=== PATIENT | female | born 1985 | race African-American/Black ===

== ENCOUNTER 2017-04-30 02:56 | Inpatient (IN) | payer MEDICAID, OTHER ==
[~2017-04-30] VITALS: Ht 170.2 cm; Wt 176.1 kg
[~2017-04-30 02:56] MED LIST: CLON.1 PO; HALO10 PO; NYST1POW MC; OLAN5TAB2 PO
[2017-04-30] MEDS ORDERED: BENZ1TAB10 PO (03:17)
[2017-04-30] MEDS ORDERED: RISP.5 PO (03:17)
[2017-04-30 04:21] LABS: BASOPHILS % (AUTO) 0.4 % (0.0-2.0); EOSINOPHILS % (AUTO) 0.9 % (1.0-6.0); HEMATOCRIT 42.6 % (36-46); HEMOGLOBIN 14.2 g/dL (12.0-16.0); LYMPHOCYTES # (AUTO) 1.6 K/uL (1.0-4.8); LYMPHOCYTES % (AUTO) 12.8 % (22.0-44.0); MEAN CORPUSCULAR HEMOGLOBIN 28.8 pg (26.0-34.0); MEAN CORPUSCULAR HGB CONC 33.3 G/dL (31.0-37.0); MEAN CORPUSCULAR VOLUME 87 fL (80-100); MONOCYTES # (AUTO) 0.7 K/uL (0.1-1.0); MONOCYTES % (AUTO) 5.6 % (2.0-9.0); NEUTROPHILS # (AUTO) 10.3 K/uL (1.8-7.7); NEUTROPHILS % (AUTO) 80.3 % (40.0-70.0); PLATELET COUNT (AUTO) 324 K/uL (150-450); RED BLOOD CELL COUNT(AUTO) 4.92 MIL/uL (4.00-5.20); WHITE BLOOD COUNT (AUTO) 12.8 K/uL (4.5-11.0)
[2017-04-30 04:26] LABS: ANION GAP 9 mmol/L (8-16); CALCIUM, TOTAL 9.4 mg/dL (8.8-10.5); CARBON DIOXIDE 26 mmol/L (22-29); CHLORIDE 105 mmol/L (98-107); CREATININE 0.77 mg/dL (0.60-1.30); GLOMERULAR FILTR. RATE CALC > 60 mL/min (>60); POTASSIUM 3.6 mmol/L (3.5-5.1); SODIUM SERUM 140 mmol/L (136-145); UREA NITROGEN, BLOOD 10 mg/dL (7-18)
[2017-04-30 04:32] LABS: ALANINE AMINOTRANSFERASE 14 U/L (12-78); ASPARTATE AMINOTRANSFERASE 13 U/L (15-37); BILIRUBIN,TOTAL 0.5 mg/dL (0.1-1.0)
[2017-04-30 04:33] LABS: ALBUMIN 3.2 g/dL (3.4-5.0); TOTAL PROTEIN, SERUM 7.8 g/dL (6.4-8.2)
[2017-04-30] MEDS ORDERED: DiphenhydrAMINE HCL 50 MG/ML VIAL IM ONE (05:00)
[2017-04-30] MEDS ORDERED: ZIPRASIDONE MESYLATE 20 MG/VIAL IM ONE (05:00)
[2017-04-30] MEDS ORDERED: LORazepam 2 MG/ML VIAL IM ONE (05:00)
[2017-04-30] MEDS ORDERED: KETOROLAC TROMETHAMINE 60 MG/2 ML VIAL IM ONE (07:30)
[2017-04-30] MEDS ORDERED: ACETAMINOPHEN 325 MG TABLET PO ONE (08:45)
[2017-04-30] MEDS ORDERED: ZOLPIDEM TARTRATE 10 MG TABLET PO PRN (09:00)
[2017-04-30] MEDS ORDERED: HALOPERIDOL 5 MG TABLET PO PRN (09:00)
[2017-04-30 11:54] VITALS: BP 143/104
[2017-04-30] MEDS: CloNIDine HCL 0.1 MG TABLET PO SCH ×2 (12:13→16:49)
[2017-04-30 16:45] VITALS: BP 157/94
[2017-04-30] MEDS: RisperiDONE 1 MG TABLET PO SCH (20:58)
[2017-04-30] MEDS: BENZTROPINE MESYLATE 1 MG TABLET PO SCH (20:58)
[2017-05-01 07:06] VITALS: BP 141/94
[2017-05-01] MEDS: CloNIDine HCL 0.1 MG TABLET PO SCH ×2 (08:35→17:07)
[2017-05-01] MEDS: RisperiDONE 1 MG TABLET PO SCH ×2 (08:35→20:40)
[2017-05-01] MEDS: NICOTINE 14 MG/24 HOUR PATCH TD SCH (08:35)
[2017-05-01] MEDS: BENZTROPINE MESYLATE 1 MG TABLET PO SCH ×2 (08:35→20:40)
[2017-05-01 09:23] VITALS: BP 108/72
[2017-05-01 09:52] LABS: CHOL/HDL RATIO 2.9 (3.9-5.7); THYROID STIMULATING HORMONE 0.86 uIU/mL (0.36-3.74)
[2017-05-01 19:28] VITALS: BP 145/79
[2017-05-02 06:22] VITALS: BP 121/87
[2017-05-02] MEDS: CloNIDine HCL 0.1 MG TABLET PO SCH ×2 (08:37→16:33)
[2017-05-02] MEDS: RisperiDONE 1 MG TABLET PO SCH ×2 (08:37→20:18)
[2017-05-02] MEDS: NICOTINE 14 MG/24 HOUR PATCH TD SCH (08:37)
[2017-05-02] MEDS: LORazepam 2 MG TABLET PO PRN (08:37)
[2017-05-02] MEDS: BENZTROPINE MESYLATE 1 MG TABLET PO SCH ×2 (08:37→20:18)
[2017-05-02 09:49] VITALS: BP 125/74
[2017-05-02 16:22] VITALS: BP 123/70
[2017-05-03] VITALS (13 sets, daily range): BP systolic 126–142; BP diastolic 62–100
[2017-05-03] MEDS: LORazepam 2 MG TABLET PO PRN (01:27)
[2017-05-03] MEDS: ACETAMINOPHEN 325 MG TABLET PO PRN ×3 (04:59→13:28)
[2017-05-03] MEDS: CloNIDine HCL 0.1 MG TABLET PO SCH ×2 (09:13→16:08)
[2017-05-03] MEDS: BENZTROPINE MESYLATE 1 MG TABLET PO SCH ×2 (09:13→20:20)
[2017-05-03] MEDS: RisperiDONE 1 MG TABLET PO SCH ×2 (09:13→20:20)
[2017-05-03] MEDS: NICOTINE 14 MG/24 HOUR PATCH TD SCH (09:14)
[2017-05-04 06:52] VITALS: BP 100/63
[2017-05-04 08:39] VITALS: BP 147/92
[2017-05-04] MEDS: BENZTROPINE MESYLATE 1 MG TABLET PO SCH ×2 (10:14→20:06)
[2017-05-04] MEDS: RisperiDONE 1 MG TABLET PO SCH ×2 (10:14→20:06)
[2017-05-04] MEDS: CloNIDine HCL 0.1 MG TABLET PO SCH ×2 (10:15→16:04)
[2017-05-04] MEDS: NICOTINE 14 MG/24 HOUR PATCH TD SCH (10:16)
[2017-05-04 12:26] VITALS: BP 125/62
[2017-05-04 16:21] VITALS: BP 138/89
[2017-05-04] MEDS: ACETAMINOPHEN 325 MG TABLET PO PRN (21:28)
[2017-05-05 06:30] VITALS: BP 135/87
[2017-05-05] MEDS: IBUPROFEN 600 MG TABLET PO PRN ×2 (06:35→17:46)
[2017-05-05 08:47] VITALS: BP 133/71
[2017-05-05] MEDS: RisperiDONE 2 MG TABLET PO SCH ×2 (08:49→20:14)
[2017-05-05] MEDS: BENZTROPINE MESYLATE 1 MG TABLET PO SCH ×2 (08:49→20:14)
[2017-05-05] MEDS: NICOTINE 14 MG/24 HOUR PATCH TD SCH (08:49)
[2017-05-05] MEDS: CloNIDine HCL 0.1 MG TABLET PO SCH ×2 (08:49→16:19)
[2017-05-05 16:33] VITALS: BP 143/86
[2017-05-05] MEDS: ACETAMINOPHEN 325 MG TABLET PO PRN (22:02)
[2017-05-06 06:54] VITALS: BP 132/78
[2017-05-06] MEDS: BENZTROPINE MESYLATE 1 MG TABLET PO SCH ×2 (08:48→20:36)
[2017-05-06] MEDS: CloNIDine HCL 0.1 MG TABLET PO SCH ×2 (08:48→16:39)
[2017-05-06] MEDS: RisperiDONE 2 MG TABLET PO SCH ×2 (08:48→20:36)
[2017-05-06] MEDS: NICOTINE 14 MG/24 HOUR PATCH TD SCH (08:49)
[2017-05-06 09:09] VITALS: BP 131/92
[2017-05-06 16:30] VITALS: BP 143/73
[2017-05-07 07:16] VITALS: BP 140/72
[2017-05-07 08:20] VITALS: BP 151/96
[2017-05-07] MEDS: CloNIDine HCL 0.1 MG TABLET PO SCH ×2 (08:20→16:40)
[2017-05-07] MEDS: BENZTROPINE MESYLATE 1 MG TABLET PO SCH ×2 (08:20→21:34)
[2017-05-07] MEDS: RisperiDONE 2 MG TABLET PO SCH ×2 (08:20→21:34)
[2017-05-07] MEDS: NICOTINE 14 MG/24 HOUR PATCH TD SCH (08:20)
[2017-05-07 16:21] VITALS: BP 108/73
[2017-05-08 06:56] VITALS: BP 135/76
[2017-05-08] MEDS: BENZTROPINE MESYLATE 1 MG TABLET PO SCH ×2 (08:18→20:29)
[2017-05-08] MEDS: RisperiDONE 2 MG TABLET PO SCH (08:18)
[2017-05-08] MEDS: CloNIDine HCL 0.1 MG TABLET PO SCH ×2 (08:18→16:38)
[2017-05-08] MEDS: NICOTINE 14 MG/24 HOUR PATCH TD SCH (08:18)
[2017-05-08 08:42] VITALS: BP_SYST 78
[2017-05-08] MEDS ORDERED: GuaiFENesin/D-METHORPHAN [SUGAR-FREE] 200-20MG/10 ML SYRUP UDCUP PO PRN (10:30)
[2017-05-08 16:00] VITALS: BP 115/61
[2017-05-08] MEDS: RisperiDONE 3 MG TABLET PO SCH (20:29)
[2017-05-09 05:00] VITALS: BP 117/63
[2017-05-09 08:28] VITALS: BP 101/78
[2017-05-09] MEDS: RisperiDONE 3 MG TABLET PO SCH ×2 (09:44→20:17)
[2017-05-09] MEDS: BENZTROPINE MESYLATE 1 MG TABLET PO SCH ×2 (09:44→20:18)
[2017-05-09] MEDS: CloNIDine HCL 0.1 MG TABLET PO SCH ×2 (09:44→16:22)
[2017-05-09] MEDS: NICOTINE 14 MG/24 HOUR PATCH TD SCH (09:44)
[2017-05-09 16:52] VITALS: BP 111/67
[2017-05-10 07:18] VITALS: BP 124/65
[2017-05-10] MEDS: RisperiDONE 3 MG TABLET PO SCH ×2 (08:20→20:22)
[2017-05-10] MEDS: BENZTROPINE MESYLATE 1 MG TABLET PO SCH ×2 (08:20→20:22)
[2017-05-10] MEDS: NICOTINE 14 MG/24 HOUR PATCH TD SCH (08:20)
[2017-05-10] MEDS: CloNIDine HCL 0.1 MG TABLET PO SCH ×2 (08:20→17:22)
[2017-05-10 08:46] VITALS: BP 133/73
[2017-05-10 16:00] VITALS: BP 124/69
[2017-05-11 07:06] VITALS: BP 118/70
[2017-05-11 08:02] VITALS: BP 128/82
[2017-05-11] MEDS: NICOTINE 14 MG/24 HOUR PATCH TD SCH (08:07)
[2017-05-11] MEDS: CloNIDine HCL 0.1 MG TABLET PO SCH ×2 (08:07→16:19)
[2017-05-11] MEDS: RisperiDONE 3 MG TABLET PO SCH ×2 (08:07→20:24)
[2017-05-11] MEDS: BENZTROPINE MESYLATE 1 MG TABLET PO SCH ×2 (08:07→20:24)
[2017-05-11 16:06] VITALS: BP 107/70
[2017-05-12 06:10] VITALS: BP 120/68
[2017-05-12] MEDS: BENZTROPINE MESYLATE 1 MG TABLET PO SCH ×2 (08:12→20:08)
[2017-05-12] MEDS: NICOTINE 14 MG/24 HOUR PATCH TD SCH (08:12)
[2017-05-12] MEDS: RisperiDONE 3 MG TABLET PO SCH ×2 (08:12→20:08)
[2017-05-12] MEDS: CloNIDine HCL 0.1 MG TABLET PO SCH ×2 (08:12→16:31)
[2017-05-12 09:12] VITALS: BP 128/78
[2017-05-12 16:46] VITALS: BP 126/89
[2017-05-13 06:00] VITALS: BP 122/81
[2017-05-13] MEDS: IBUPROFEN 600 MG TABLET PO PRN (06:02)
[2017-05-13] MEDS: NICOTINE 14 MG/24 HOUR PATCH TD SCH (08:28)
[2017-05-13] MEDS: BENZTROPINE MESYLATE 1 MG TABLET PO SCH ×2 (08:28→20:30)
[2017-05-13] MEDS: RisperiDONE 3 MG TABLET PO SCH ×2 (08:28→20:30)
[2017-05-13] MEDS: CloNIDine HCL 0.1 MG TABLET PO SCH ×2 (08:28→16:25)
[2017-05-13 08:35] VITALS: BP 145/90
[2017-05-13 16:24] VITALS: BP 106/68
[2017-05-14] MEDS: CloNIDine HCL 0.1 MG TABLET PO SCH ×2 (08:28→16:30)
[2017-05-14] MEDS: RisperiDONE 3 MG TABLET PO SCH ×2 (08:28→20:49)
[2017-05-14] MEDS: BENZTROPINE MESYLATE 1 MG TABLET PO SCH ×2 (08:28→20:49)
[2017-05-14] MEDS: NICOTINE 14 MG/24 HOUR PATCH TD SCH (08:28)
[2017-05-14 08:34] VITALS: BP 144/90
[2017-05-14] MEDS: ACETAMINOPHEN 325 MG TABLET PO PRN (08:34)
[2017-05-14 08:47] VITALS: BP 144/90
[2017-05-14 16:16] VITALS: BP 138/75
[2017-05-15 06:03] VITALS: BP 127/73
[2017-05-15] MEDS: CloNIDine HCL 0.1 MG TABLET PO SCH ×2 (08:22→16:17)
[2017-05-15] MEDS: BENZTROPINE MESYLATE 1 MG TABLET PO SCH ×2 (08:22→20:51)
[2017-05-15] MEDS: RisperiDONE 3 MG TABLET PO SCH ×2 (08:22→20:51)
[2017-05-15] MEDS: NICOTINE 14 MG/24 HOUR PATCH TD SCH (08:24)
[2017-05-15 08:28] VITALS: BP 115/64
[2017-05-15 16:21] VITALS: BP 115/63
[2017-05-15] MEDS: ACETAMINOPHEN 325 MG TABLET PO PRN (18:02)
[2017-05-16 06:20] VITALS: BP 118/75
[2017-05-16 08:16] VITALS: BP 108/65
[2017-05-16] MEDS: BENZTROPINE MESYLATE 1 MG TABLET PO SCH ×2 (09:24→20:37)
[2017-05-16] MEDS: RisperiDONE 3 MG TABLET PO SCH ×2 (09:24→20:37)
[2017-05-16] MEDS: NICOTINE 14 MG/24 HOUR PATCH TD SCH (09:24)
[2017-05-16] MEDS: CloNIDine HCL 0.1 MG TABLET PO SCH ×2 (09:24→16:25)
[2017-05-16 09:48] VITALS: BP 118/70
[2017-05-16 16:00] VITALS: BP 123/68
[2017-05-16 16:52] VITALS: BP 125/70
[2017-05-16] MEDS: IBUPROFEN 600 MG TABLET PO PRN (16:52)
[2017-05-17 06:43] VITALS: BP 138/71
[2017-05-17] MEDS: BENZTROPINE MESYLATE 1 MG TABLET PO SCH (08:40)
[2017-05-17] MEDS: CloNIDine HCL 0.1 MG TABLET PO SCH (08:40)
[2017-05-17] MEDS: RisperiDONE 3 MG TABLET PO SCH (08:40)
[2017-05-17] MEDS: NICOTINE 14 MG/24 HOUR PATCH TD SCH (08:40)
[2017-05-17 09:15] VITALS: BP 123/85
[2017-05-17] MEDS ORDERED: CLON.1 PO (09:30)
== END 2017-05-17 17:41 | disposition home or self-care (01) | DRG 750 ==
LOC: EMS 02:58 → B3A 09:32 → B2S 05-15 13:56
DX: F20.0 Paranoid schizophrenia (principal); R56.9 Unspecified convulsions; Z88.0 Allergy status to penicillin; Z72.0 Tobacco use; E11.9 Type 2 diabetes mellitus without complications
CPT/HCPCS: 84436; 84439; 84443; 99285; G0480

== ENCOUNTER 2017-09-14 22:32 | Inpatient (IN) | payer MEDICAID, OTHER ==
[~2017-09-14] VITALS: Ht 170.2 cm; Wt 180.8 kg
[~2017-09-14 22:32] MED LIST changes: +BENZ1TAB10 PO; +CLON-570 PO; -CLON.1 PO; -HALO10 PO; -NYST1POW MC; -OLAN5TAB2 PO; +RISP.5 PO
[2017-09-14 22:54] LABS: BASOPHILS % (AUTO) 0.1 % (0.0-2.0); EOSINOPHILS % (AUTO) 2.3 % (1.0-6.0); HEMATOCRIT 42.5 % (36-46); HEMOGLOBIN 14.4 g/dL (12.0-16.0); LYMPHOCYTES # (AUTO) 2.3 K/uL (1.0-4.8); LYMPHOCYTES % (AUTO) 18.1 % (22.0-44.0); MEAN CORPUSCULAR HEMOGLOBIN 28.9 pg (26.0-34.0); MEAN CORPUSCULAR HGB CONC 33.8 G/dL (31.0-37.0); MEAN CORPUSCULAR VOLUME 86 fL (80-100); MONOCYTES # (AUTO) 0.6 K/uL (0.1-1.0); MONOCYTES % (AUTO) 4.9 % (2.0-9.0); NEUTROPHILS # (AUTO) 9.3 K/uL (1.8-7.7); NEUTROPHILS % (AUTO) 74.6 % (40.0-70.0); PLATELET COUNT (AUTO) 331 K/uL (150-450); RED BLOOD CELL COUNT(AUTO) 4.97 MIL/uL (4.00-5.20); RED CELL DISTRIBUTION WIDTH 15.1 % (11.5-14.5); WHITE BLOOD COUNT (AUTO) 12.5 K/uL (4.5-11.0)
[2017-09-14 23:02] LABS: ANION GAP 8 mmol/L (8-16); CARBON DIOXIDE 28 mmol/L (22-29); CHLORIDE 102 mmol/L (98-107); CREATININE 0.71 mg/dL (0.60-1.30); GLOMERULAR FILTR. RATE CALC > 60 mL/min (>60); POTASSIUM 3.9 mmol/L (3.5-5.1); SODIUM SERUM 138 mmol/L (136-145); UREA NITROGEN, BLOOD 9 mg/dL (7-18)
[2017-09-14 23:08] LABS: ALANINE AMINOTRANSFERASE 10 U/L (12-78); ALBUMIN 3.2 g/dL (3.4-5.0); ASPARTATE AMINOTRANSFERASE 14 U/L (15-37); BILIRUBIN,TOTAL 0.4 mg/dL (0.1-1.0); TOTAL PROTEIN, SERUM 7.8 g/dL (6.4-8.2)
[2017-09-14] MEDS ORDERED: ZOLPIDEM TARTRATE 10 MG TABLET PO PRN (23:45)
[2017-09-14] MEDS ORDERED: HALOPERIDOL 5 MG TABLET PO PRN (23:45)
[2017-09-14] MEDS ORDERED: LORazepam 2 MG TABLET PO PRN (23:45)
[2017-09-15 00:10] LABS: GLUCOSE, URINE (UA) NEGATIVE (NEGATIVE); KETONES,URINE NEGATIVE (NEGATIVE); LEUKOCYTE ESTERASE ,URINE NEGATIVE (NEGATIVE); OCCULT BLOOD,URINE NEGATIVE (NEGATIVE); PH,URINE 5.5 (5.0-8.0); PROTEIN,URINE NEGATIVE (NEGATIVE)
[2017-09-15 00:18] LABS: CHOL/HDL RATIO 2.6 (3.9-5.7); THYROID STIMULATING HORMONE 1.87 uIU/mL (0.36-3.74)
[2017-09-15 00:44] LABS: ADD UA MICROSCOPIC NO; APPEARANCE,URINE HAZY (CLEAR)
[2017-09-15] MEDS ORDERED: HALOPERIDOL LACTATE 5 MG/ML VIAL IM ONE (01:00)
[2017-09-15] MEDS ORDERED: DiphenhydrAMINE HCL 50 MG/ML VIAL IM ONE (01:00)
[2017-09-15] MEDS ORDERED: LORazepam 2 MG/ML VIAL IM ONE (01:00)
[2017-09-15 03:24] VITALS: BP 148/96
[2017-09-15] MEDS ORDERED: INFLUENZA VIRUS VACCINE QVS 2017-18 (3YR+)/PF 60 MCG/0.5 ML SYRINGE IM ONE (03:45)
[2017-09-15] MEDS ORDERED: -PHARMACY VACCINE NOTE- MISC ONE ×2 (03:45)
[2017-09-15 08:07] VITALS: BP 125/88
[2017-09-15] MEDS: CloNIDine HCL 0.1 MG TABLET PO SCH ×2 (08:36→16:10)
[2017-09-15] MEDS: BENZTROPINE MESYLATE 1 MG TABLET PO SCH ×2 (11:47→20:09)
[2017-09-15] MEDS: RisperiDONE 2 MG TABLET PO SCH ×2 (11:47→20:09)
[2017-09-15 16:00] VITALS: BP 138/86
[2017-09-16 00:37] VITALS: BP 132/80
[2017-09-16] MEDS: BENZTROPINE MESYLATE 1 MG TABLET PO SCH ×2 (08:34→20:08)
[2017-09-16] MEDS: RisperiDONE 2 MG TABLET PO SCH ×2 (08:34→20:08)
[2017-09-16] MEDS: CloNIDine HCL 0.1 MG TABLET PO SCH ×2 (08:34→16:00)
[2017-09-16 16:12] VITALS: BP 121/83
[2017-09-17] MEDS ORDERED: IBUPROFEN 600 MG TABLET PO PRN (06:30)
[2017-09-17 06:45] VITALS: BP 128/83
[2017-09-17 07:54] LABS: BASOPHILS % (AUTO) 0.3 % (0.0-2.0); EOSINOPHILS % (AUTO) 3.1 % (1.0-6.0); HEMATOCRIT 37.7 % (36-46); HEMOGLOBIN 12.7 g/dL (12.0-16.0); LYMPHOCYTES # (AUTO) 3.2 K/uL (1.0-4.8); LYMPHOCYTES % (AUTO) 29.2 % (22.0-44.0); MEAN CORPUSCULAR HGB CONC 33.8 G/dL (31.0-37.0); MEAN CORPUSCULAR VOLUME 86 fL (80-100); MONOCYTES # (AUTO) 0.6 K/uL (0.1-1.0); MONOCYTES % (AUTO) 5.3 % (2.0-9.0); NEUTROPHILS # (AUTO) 6.9 K/uL (1.8-7.7); NEUTROPHILS % (AUTO) 62.1 % (40.0-70.0); PLATELET COUNT (AUTO) 293 K/uL (150-450); RED BLOOD CELL COUNT(AUTO) 4.39 MIL/uL (4.00-5.20); RED CELL DISTRIBUTION WIDTH 14.9 % (11.5-14.5); WHITE BLOOD COUNT (AUTO) 11.1 K/uL (4.5-11.0)
[2017-09-17 08:04] VITALS: BP 117/64
[2017-09-17] MEDS: BENZTROPINE MESYLATE 1 MG TABLET PO SCH ×2 (08:20→20:22)
[2017-09-17] MEDS: RisperiDONE 2 MG TABLET PO SCH ×2 (08:20→20:22)
[2017-09-17] MEDS: CloNIDine HCL 0.1 MG TABLET PO SCH ×2 (10:51→18:23)
[2017-09-17 10:53] VITALS: BP 149/86
[2017-09-17 16:01] VITALS: BP 117/71
[2017-09-18 06:00] VITALS: BP 119/77
[2017-09-18] MEDS: CloNIDine HCL 0.1 MG TABLET PO SCH ×2 (08:44→16:16)
[2017-09-18] MEDS: BENZTROPINE MESYLATE 1 MG TABLET PO SCH ×2 (08:44→20:14)
[2017-09-18] MEDS: RisperiDONE 2 MG TABLET PO SCH (08:44)
[2017-09-18 09:02] VITALS: BP 103/57
[2017-09-18 16:11] VITALS: BP 110/65
[2017-09-18] MEDS: RisperiDONE 3 MG TABLET PO SCH (20:14)
[2017-09-19 01:04] VITALS: BP 105/64
[2017-09-19] MEDS: RisperiDONE 3 MG TABLET PO SCH ×2 (08:33→20:34)
[2017-09-19] MEDS: BENZTROPINE MESYLATE 1 MG TABLET PO SCH ×2 (08:33→20:34)
[2017-09-19] MEDS: CloNIDine HCL 0.1 MG TABLET PO SCH ×2 (08:33→16:20)
[2017-09-19 09:02] VITALS: BP 126/84
[2017-09-19 16:01] VITALS: BP 115/73
[2017-09-20 06:10] VITALS: BP 108/67
[2017-09-20] MEDS: BENZTROPINE MESYLATE 1 MG TABLET PO SCH ×2 (08:24→20:39)
[2017-09-20] MEDS: CloNIDine HCL 0.1 MG TABLET PO SCH ×2 (08:24→16:14)
[2017-09-20] MEDS: RisperiDONE 3 MG TABLET PO SCH ×2 (08:24→20:39)
[2017-09-20 08:53] VITALS: BP 125/93
[2017-09-20 16:01] VITALS: BP 117/78
[2017-09-21 03:50] VITALS: BP 129/79
[2017-09-21] MEDS: CloNIDine HCL 0.1 MG TABLET PO SCH ×2 (08:20→16:15)
[2017-09-21] MEDS: RisperiDONE 3 MG TABLET PO SCH ×2 (08:20→20:12)
[2017-09-21] MEDS: BENZTROPINE MESYLATE 1 MG TABLET PO SCH ×2 (08:20→20:12)
[2017-09-21 08:38] VITALS: BP 120/91
[2017-09-21 10:31] VITALS: BP 107/70
[2017-09-21 14:22] VITALS: BP 107/70
[2017-09-21 16:39] VITALS: BP 115/67
[2017-09-22 04:32] VITALS: BP 113/73
[2017-09-22] MEDS: BENZTROPINE MESYLATE 1 MG TABLET PO SCH ×2 (08:14→20:14)
[2017-09-22] MEDS: RisperiDONE 3 MG TABLET PO SCH ×2 (08:14→20:14)
[2017-09-22] MEDS: CloNIDine HCL 0.1 MG TABLET PO SCH ×2 (08:14→16:13)
[2017-09-22 08:44] VITALS: BP 120/81
[2017-09-22 16:18] VITALS: BP 113/69
[2017-09-23 04:34] VITALS: BP 118/72
[2017-09-23] MEDS: ACETAMINOPHEN 325 MG TABLET PO PRN (04:41)
[2017-09-23 08:26] VITALS: BP 113/66
[2017-09-23] MEDS: CloNIDine HCL 0.1 MG TABLET PO SCH ×2 (08:36→16:01)
[2017-09-23] MEDS: RisperiDONE 3 MG TABLET PO SCH ×2 (08:37→20:28)
[2017-09-23] MEDS: BENZTROPINE MESYLATE 1 MG TABLET PO SCH ×2 (08:37→20:28)
[2017-09-23] MEDS ORDERED: PALIPERIDONE PALMITATE 234 MG/1.5 ML SYRINGE IM ONE (13:00)
[2017-09-23 16:25] VITALS: BP 149/93
[2017-09-24 00:48] VITALS: BP 131/60
[2017-09-24 08:12] VITALS: BP 114/62
[2017-09-24] MEDS: BENZTROPINE MESYLATE 1 MG TABLET PO SCH ×2 (08:47→21:21)
[2017-09-24] MEDS: RisperiDONE 3 MG TABLET PO SCH ×2 (08:47→21:21)
[2017-09-24] MEDS: CloNIDine HCL 0.1 MG TABLET PO SCH ×2 (08:48→16:43)
[2017-09-24 16:00] VITALS: BP 115/84
[2017-09-25 05:39] VITALS: BP 112/74
[2017-09-25] MEDS: CloNIDine HCL 0.1 MG TABLET PO SCH ×2 (08:35→16:16)
[2017-09-25] MEDS: BENZTROPINE MESYLATE 1 MG TABLET PO SCH ×2 (08:35→20:07)
[2017-09-25] MEDS: RisperiDONE 3 MG TABLET PO SCH ×2 (08:35→20:07)
[2017-09-25 08:36] VITALS: BP 106/72
[2017-09-25 16:11] VITALS: BP 121/80
[2017-09-26 01:32] VITALS: BP 120/74
[2017-09-26] MEDS: ACETAMINOPHEN 325 MG TABLET PO PRN (01:32)
[2017-09-26 08:00] VITALS: BP 124/82
[2017-09-26] MEDS: CloNIDine HCL 0.1 MG TABLET PO SCH ×2 (08:05→16:15)
[2017-09-26] MEDS: BENZTROPINE MESYLATE 1 MG TABLET PO SCH ×2 (08:05→20:11)
[2017-09-26] MEDS: RisperiDONE 3 MG TABLET PO SCH ×2 (08:05→20:11)
[2017-09-26 16:00] VITALS: BP 123/84
[2017-09-27 00:05] VITALS: BP 119/71
[2017-09-27 08:29] VITALS: BP 161/95
[2017-09-27] MEDS: RisperiDONE 3 MG TABLET PO SCH (08:59)
[2017-09-27] MEDS: CloNIDine HCL 0.1 MG TABLET PO SCH (08:59)
[2017-09-27] MEDS ORDERED: PALIPERIDONE PALMITATE 156 MG/ML SYRINGE IM ONE (09:00)
[2017-09-27] MEDS: BENZTROPINE MESYLATE 1 MG TABLET PO SCH (09:00)
== END 2017-09-27 13:20 | disposition home or self-care (01) | DRG 750 ==
LOC: EMS 22:33 → B2S 09-15 00:35
DX: F25.1 Schizoaffective disorder, depressive type (principal); Z68.44 Body mass index [BMI] 60.0-69.9, adult; I10 Essential (primary) hypertension; E66.3 Overweight; F15.10 Other stimulant abuse, uncomplicated; E11.9 Type 2 diabetes mellitus without complications; F17.200 Nicotine dependence, unspecified, uncomplicated; Z88.0 Allergy status to penicillin; Z79.899 Other long term (current) drug therapy
CPT/HCPCS: 84443; 90471; 96372; 99285; G0480; J1200; J1630; J2060

== ENCOUNTER 2018-05-29 11:42 | Inpatient (IN) | payer MEDICAID, OTHER ==
[~2018-05-29] VITALS: Ht 167.6 cm; Wt 186.9 kg
[2018-05-29] MEDS ORDERED: BENZTROPINE MESYLATE 1 MG TABLET PO ONE (13:45)
[2018-05-29] MEDS ORDERED: RisperiDONE 1 MG TABLET PO ONE (13:45)
[2018-05-29] MEDS ORDERED: DiphenhydrAMINE HCL 50 MG/ML VIAL IM ONE (14:15)
[2018-05-29] MEDS ORDERED: LORazepam 2 MG/ML VIAL IM ONE (14:15)
[2018-05-29] MEDS ORDERED: HALOPERIDOL LACTATE 5 MG/ML VIAL IM ONE (14:15)
[2018-05-29] MEDS ORDERED: LORazepam 2 MG TABLET PO PRN (15:30)
[2018-05-29] MEDS ORDERED: HALOPERIDOL 5 MG TABLET PO PRN (15:30)
[2018-05-29 15:55] LABS: EOSINOPHILS % (AUTO) 1.1 % (1.0-6.0); HEMATOCRIT 41.7 % (36-46); HEMOGLOBIN 13.9 g/dL (12.0-16.0); LYMPHOCYTES # (AUTO) 2.4 K/uL (1.0-4.8); LYMPHOCYTES % (AUTO) 20.7 % (22.0-44.0); MEAN CORPUSCULAR HEMOGLOBIN 27.8 pg (26.0-34.0); MEAN CORPUSCULAR HGB CONC 33.2 G/dL (31.0-37.0); MEAN CORPUSCULAR VOLUME 84 fL (80-100); MONOCYTES # (AUTO) 0.6 K/uL (0.1-1.0); NEUTROPHILS # (AUTO) 8.5 K/uL (1.8-7.7); NEUTROPHILS % (AUTO) 72.2 % (40.0-70.0); PLATELET COUNT (AUTO) 297 K/uL (150-450); RED BLOOD CELL COUNT(AUTO) 4.98 MIL/uL (4.00-5.20); RED CELL DISTRIBUTION WIDTH 15.7 % (11.5-14.5)
[2018-05-29 16:07] LABS: ANION GAP 8 mmol/L (8-16); CALCIUM, TOTAL 9.1 mg/dL (8.8-10.5); CARBON DIOXIDE 25 mmol/L (22-29); CHLORIDE 106 mmol/L (98-107); CREATININE 0.64 mg/dL (0.60-1.30); GLOMERULAR FILTR. RATE CALC > 60 mL/min (>60); GLUCOSE,RANDOM 91 mg/dL (70-110); POTASSIUM 3.9 mmol/L (3.5-5.1); SODIUM SERUM 139 mmol/L (136-145); UREA NITROGEN, BLOOD 4 mg/dL (7-18)
[2018-05-29 16:12] LABS: ALANINE AMINOTRANSFERASE 13 U/L (12-78); ALBUMIN 3.1 g/dL (3.4-5.0); ALKALINE PHOSPHATASE 78 U/L (46-116); ASPARTATE AMINOTRANSFERASE 16 U/L (15-37); BILIRUBIN,TOTAL 0.5 mg/dL (0.1-1.0); TOTAL PROTEIN, SERUM 7.3 g/dL (6.4-8.2)
[2018-05-29] MEDS ORDERED: AmLODIPine BESYLATE 5 MG TABLET PO ONE (16:30)
[2018-05-29 19:41] VITALS: BP 146/81
[2018-05-29] MEDS ORDERED: GuaiFENesin/D-METHORPHAN [SUGAR-FREE] 200-20MG/10 ML SYRUP UDCUP PO PRN (20:00)
[2018-05-29] MEDS ORDERED: MAGNESIUM HYDROXIDE SUSPENSION 30 ML UDCUP PO PRN (20:00)
[2018-05-29] MEDS ORDERED: DOCUSATE SODIUM 100 MG CAPSULE PO PRN (20:00)
[2018-05-29] MEDS ORDERED: PETROLATUM,WHITE 71 GM JELLY TP PRN (20:00)
[2018-05-29] MEDS ORDERED: LOPERAMIDE HCL 2 MG CAPSULE PO PRN (20:00)
[2018-05-29] MEDS ORDERED: ONDANSETRON HCL 4 MG TABLET PO PRN (20:00)
[2018-05-29] MEDS ORDERED: ALBUTEROL SULFATE HFA 90 MCG/PUFF 8 GM INHALER IH PRN (20:00)
[2018-05-29] MEDS ORDERED: NICOTINE 14 MG/24 HOUR PATCH TD PRN (20:00)
[2018-05-29] MEDS ORDERED: MAG HYDROX/AL HYDROX/SIMETH ES 30 ML SUSPENSION UDCUP PO PRN (20:00)
[2018-05-29] MEDS: RisperiDONE 2 MG TABLET PO SCH (20:33)
[2018-05-29] MEDS: ZOLPIDEM TARTRATE 10 MG TABLET PO PRN (20:33)
[2018-05-29] MEDS: BENZTROPINE MESYLATE 1 MG TABLET PO SCH (20:33)
[2018-05-30 06:32] VITALS: BP 137/60
[2018-05-30 08:29] LABS: BASOPHILS % (AUTO) 0.3 % (0.0-2.0); EOSINOPHILS % (AUTO) 2.9 % (1.0-6.0); HEMATOCRIT 39.8 % (36-46); HEMOGLOBIN 13.3 g/dL (12.0-16.0); LYMPHOCYTES # (AUTO) 2.9 K/uL (1.0-4.8); LYMPHOCYTES % (AUTO) 26.4 % (22.0-44.0); MEAN CORPUSCULAR HEMOGLOBIN 28.4 pg (26.0-34.0); MEAN CORPUSCULAR HGB CONC 33.4 G/dL (31.0-37.0); MEAN CORPUSCULAR VOLUME 85 fL (80-100); MONOCYTES # (AUTO) 0.6 K/uL (0.1-1.0); MONOCYTES % (AUTO) 5.4 % (2.0-9.0); NEUTROPHILS # (AUTO) 7.1 K/uL (1.8-7.7); PLATELET COUNT (AUTO) 290 K/uL (150-450); RED BLOOD CELL COUNT(AUTO) 4.68 MIL/uL (4.00-5.20); RED CELL DISTRIBUTION WIDTH 15.8 % (11.5-14.5)
[2018-05-30 08:44] VITALS: BP 143/75
[2018-05-30 08:46] LABS: HEMOGLOBIN A1C 5.5 % (4.5-6.2)
[2018-05-30] MEDS: CloNIDine HCL 0.1 MG TABLET PO SCH ×2 (08:56→16:44)
[2018-05-30] MEDS: BENZTROPINE MESYLATE 1 MG TABLET PO SCH ×2 (08:56→20:52)
[2018-05-30] MEDS: RisperiDONE 2 MG TABLET PO SCH ×2 (08:56→20:51)
[2018-05-30 09:03] LABS: ALANINE AMINOTRANSFERASE 12 U/L (12-78); ALBUMIN 2.8 g/dL (3.4-5.0); ALKALINE PHOSPHATASE 71 U/L (46-116); ANION GAP 7 mmol/L (8-16); ASPARTATE AMINOTRANSFERASE 12 U/L (15-37); BILIRUBIN,TOTAL 0.5 mg/dL (0.1-1.0); CALCIUM, TOTAL 8.6 mg/dL (8.8-10.5); CARBON DIOXIDE 27 mmol/L (22-29); CHLORIDE 107 mmol/L (98-107); CHOL/HDL RATIO 3.3 (3.9-5.7); CHOLESTEROL 117 mg/dL (131-200); CREATININE 0.56 mg/dL (0.60-1.30); GLOMERULAR FILTR. RATE CALC > 60 mL/min (>60); GLUCOSE,RANDOM 92 mg/dL (70-110); HDL CHOLESTEROL 35 mg/dL (40-60); LDL CHOL (CALC.) 70 mg/dL (0-130); POTASSIUM 3.8 mmol/L (3.5-5.1); SODIUM SERUM 141 mmol/L (136-145); THYROID STIMULATING HORMONE 1.92 uIU/mL (0.36-3.74); TOTAL PROTEIN, SERUM 6.2 g/dL (6.4-8.2); TRIGLYCERIDES 62 mg/dL (15-150); UREA NITROGEN, BLOOD 3 mg/dL (7-18)
[2018-05-30 16:24] VITALS: BP 121/75
[2018-05-30] MEDS: IBUPROFEN 400 MG TABLET PO PRN (16:53)
[2018-05-30] MEDS: ZOLPIDEM TARTRATE 10 MG TABLET PO PRN (20:52)
[2018-05-31 04:10] VITALS: BP 126/68
[2018-05-31] MEDS: IBUPROFEN 400 MG TABLET PO PRN (04:18)
[2018-05-31 08:19] VITALS: BP 147/73
[2018-05-31] MEDS: CloNIDine HCL 0.1 MG TABLET PO SCH ×2 (08:31→16:53)
[2018-05-31] MEDS: BENZTROPINE MESYLATE 1 MG TABLET PO SCH ×2 (08:31→20:39)
[2018-05-31] MEDS: RisperiDONE 2 MG TABLET PO SCH ×2 (08:31→20:39)
[2018-05-31 16:17] VITALS: BP 122/76
[2018-05-31] MEDS: ZOLPIDEM TARTRATE 10 MG TABLET PO PRN (20:39)
[2018-06-01 06:23] VITALS: BP 148/85
[2018-06-01] MEDS: BENZTROPINE MESYLATE 1 MG TABLET PO SCH ×2 (08:11→20:40)
[2018-06-01] MEDS: RisperiDONE 2 MG TABLET PO SCH ×2 (08:11→20:40)
[2018-06-01] MEDS: CloNIDine HCL 0.1 MG TABLET PO SCH ×2 (08:11→16:40)
[2018-06-01 08:16] VITALS: BP 111/60
[2018-06-01 17:16] VITALS: BP 116/60
[2018-06-01] MEDS: IBUPROFEN 400 MG TABLET PO PRN (20:38)
[2018-06-01] MEDS: ZOLPIDEM TARTRATE 10 MG TABLET PO PRN (20:40)
[2018-06-02 06:10] VITALS: BP 128/79
[2018-06-02] MEDS: IBUPROFEN 400 MG TABLET PO PRN ×2 (06:15→20:16)
[2018-06-02 08:22] VITALS: BP 156/86
[2018-06-02] MEDS: CloNIDine HCL 0.1 MG TABLET PO SCH ×2 (08:46→17:20)
[2018-06-02] MEDS: RisperiDONE 2 MG TABLET PO SCH ×2 (08:46→20:15)
[2018-06-02] MEDS: BENZTROPINE MESYLATE 1 MG TABLET PO SCH ×2 (08:46→20:15)
[2018-06-02 14:14] VITALS: BP 140/90
[2018-06-02 16:41] VITALS: BP 135/88
[2018-06-02] MEDS: ZOLPIDEM TARTRATE 10 MG TABLET PO PRN (20:15)
[2018-06-03 05:35] VITALS: BP 140/94
[2018-06-03 08:11] VITALS: BP 142/91
[2018-06-03] MEDS: ACETAMINOPHEN 325 MG TABLET PO PRN (08:31)
[2018-06-03] MEDS: RisperiDONE 2 MG TABLET PO SCH ×2 (08:32→21:16)
[2018-06-03] MEDS: BENZTROPINE MESYLATE 1 MG TABLET PO SCH ×2 (08:32→21:16)
[2018-06-03] MEDS: CloNIDine HCL 0.1 MG TABLET PO SCH ×2 (08:32→16:32)
[2018-06-03 16:50] VITALS: BP 156/77
[2018-06-04 04:24] VITALS: BP 133/75
[2018-06-04] MEDS: ACETAMINOPHEN 325 MG TABLET PO PRN (04:24)
[2018-06-04] MEDS: RisperiDONE 2 MG TABLET PO SCH (08:43)
[2018-06-04] MEDS: CloNIDine HCL 0.1 MG TABLET PO SCH (08:43)
[2018-06-04] MEDS: BENZTROPINE MESYLATE 1 MG TABLET PO SCH (08:43)
[2018-06-04 09:36] VITALS: BP 142/85
[2018-06-04] MEDS ORDERED: RISP2 PO (10:53)
[2018-06-04] MEDS ORDERED: BENZ1TAB10 PO (10:53)
[2018-06-04] MEDS ORDERED: RISP2TAB76 PO (11:11)
[2018-06-04 17:27] VITALS: BP 119/100
== END 2018-06-04 16:35 | disposition home or self-care (01) | DRG 750 ==
LOC: EMS 11:43 → B3A 17:46
DX: F25.1 Schizoaffective disorder, depressive type (principal); E66.01 Morbid (severe) obesity due to excess calories; Z78.1 Physical restraint status; I10 Essential (primary) hypertension; Z79.899 Other long term (current) drug therapy; G40.909 Epilepsy, unspecified, not intractable, without status epilepticus; F41.9 Anxiety disorder, unspecified; F17.200 Nicotine dependence, unspecified, uncomplicated; E11.9 Type 2 diabetes mellitus without complications; Z88.0 Allergy status to penicillin; Z71.6 Tobacco abuse counseling
CPT/HCPCS: 83036; 84443; 96372; 99291; G0480; J1200; J1630; J2060